=== PATIENT | male | born 1995 | race African-American/Black ===

== ENCOUNTER 2022-02-06 17:30 | Emergency (ER) | payer MEDICAID ==
[~2022-02-06] VITALS: Ht 167.6 cm; Wt 61.8 kg
[2022-02-06 17:33] VITALS: BP 125/74
[2022-02-06] MEDS ORDERED: CLIN-97 PO (18:07)
[2022-02-06] MEDS ORDERED: HYDROcodone/acetaminophen 10/325mg tab PO ONE (18:15)
== END 2022-02-06 18:35 | disposition home or self-care (01) ==
LOC: ER 17:32
DX: K04.7 Periapical abscess without sinus (principal); K02.9 Dental caries, unspecified; Z79.2 Long term (current) use of antibiotics
CPT/HCPCS: 99283